=== PATIENT | female | born 1990 | race Caucasian/White ===

== ENCOUNTER → 2017-03-21 | Outpatient (CLI) | payer OTHER ==
[~2017-03-21] MED LIST: ASPIRIN EC81 MG PO
== END ==
LOC: EMI 13:53
DX: G35 Multiple sclerosis (principal); G43.909 Migraine, unspecified, not intractable, without status migrainosus; G93.89 Other specified disorders of brain
CPT/HCPCS: 36415; 70553; 72156; 84703; A9577; J7050

== ENCOUNTER 2017-04-02 16:50 | Emergency (ER) | payer OTHER | END 2017-04-02 20:39 | disposition home or self-care (01) | LOC: ER1 16:50 | DX: M51.16 Intervertebral disc disorders with radiculopathy, lumbar region (principal); Z88.0 Allergy status to penicillin; Z88.1 Allergy status to other antibiotic agents; Z88.5 Allergy status to narcotic agent; Z88.8 Allergy status to other drugs, medicaments and biological substances | CPT/HCPCS: 36415; 72131; 81001; 84703; 96372; 99284; J2930 ==

== ENCOUNTER 2017-05-05 15:03 | Emergency (ER) | payer OTHER ==
[2017-05-05 16:25] LABS: HEMOGLOBIN 13.7 gm/dl (12.3-15.3); RED BLOOD COUNT 4.28 M/UL (4.00-5.10); WHITE BLOOD COUNT 10.8 K/UL (4.5-11.0)
[2017-05-05 16:46] LABS: BUN/CREATININE RATIO 25 (0-10)
== END 2017-05-05 18:35 | disposition home or self-care (01) ==
LOC: ER1 15:03
PROVIDERS: Emergency Medicine
DX: L27.1 Localized skin eruption due to drugs and medicaments taken internally (principal); M54.9 Dorsalgia, unspecified; T39.8X5A Adverse effect of other nonopioid analgesics and antipyretics, not elsewhere classified, initial encounter
CPT/HCPCS: 36415; 71010; 80053; 81001; 82550; 82553; 83874; 84484; 84703; 85025; 93005; 96361; 96374; 96375; 99283; J0171; J1200; J2270; J2550; J2930

== ENCOUNTER → 2021-01-20 | Outpatient (CLI) | payer OTHER ==
[~2021-01-20] MED LIST changes: +BENTYL 20MG TAB20 MG PO; +FIORICET PO; +K-DUR TAB 20 M20 MEQ PO; +LODINE CAP 300300 MG PO; +NORCO 5-325 TA1 EACH PO; +PHENERGAN 12.12.5 M1 PO; +PHENERGAN 25 MG25 M1 PO; +REGLAN10 MG PO; +TAMIFLU75 MG PO; +TESSALON PERLE100 MG PO
== END ==
LOC: EMI 12-31 13:45
DX: G35 Multiple sclerosis (principal); G43.909 Migraine, unspecified, not intractable, without status migrainosus; R90.82 White matter disease, unspecified
CPT/HCPCS: 70551; 72141; 72146